=== PATIENT | male | born 1995 | race Caucasian/White ===

== ENCOUNTER 2018-01-12 23:09 | Emergency (ER) | payer MEDICAID ==
[~2018-01-12] VITALS: Ht 175.3 cm; Wt 92.6 kg
[2018-01-13 00:21] VITALS: Ht 175.3 cm; Wt 92.6 kg
[2018-01-13 02:29] VITALS: BP 131/74
== END 2018-01-13 02:29 | disposition home or self-care (01) ==
LOC: ED 23:09
DX: R11.2 Nausea with vomiting, unspecified (principal); R42 Dizziness and giddiness; R68.83 Chills (without fever); R63.0 Anorexia; R10.12 Left upper quadrant pain; R10.32 Left lower quadrant pain
CPT/HCPCS: Q0162

== ENCOUNTER 2018-07-21 20:48 | Emergency (ER) | payer MEDICAID ==
[~2018-07-21] VITALS: Ht 180.3 cm; Wt 97.5 kg
[2018-07-21 21:54] VITALS: Ht 180.3 cm; Wt 97.5 kg
[2018-07-22 01:07] VITALS: BP 132/82
== END 2018-07-22 01:07 | disposition home or self-care (01) ==
LOC: ED 20:48
DX: J20.9 Acute bronchitis, unspecified (principal); J45.909 Unspecified asthma, uncomplicated
CPT/HCPCS: J7512